=== PATIENT | male | born 1965 | race African-American/Black ===

== ENCOUNTER 2020-01-30 17:51 | Inpatient (IN) | payer MEDICAID ==
[~2020-01-30] VITALS: Ht 170.2 cm; Wt 100.2 kg
[2020-01-30 18:30] VITALS: BP 128/88
--- NOTE | 2020-01-30 18:55 | Emergency Room Report ---
History of Present Illness General Chief Complaint: General Complaint Source: Patient Present Illness HPI 54-year-old male presents with a chief complaint of weight loss, dry mouth increased urination x1 month, no aggravating relieving factors severity is moderate, constant patient has a family history of diabetes, patient denies any chest pain shortness of breath no nausea no vomiting no abdominal pain patient presents for evaluation Allergies: Coded Allergies: No Known Allergies (Unverified , 01/30/20) Patient History Past Medical History: see triage record Reviewed Nursing Documentation: PMH: Agreed; PSxH: Agreed Review of Systems All Other Systems: negative except mentioned in HPI Physical Exam Vital Signs Date Time Temp Pulse Resp B/P (MAP) Pulse Ox O2 Delivery O2 Flow Rate FiO2 01/30/20 18:04 97.5 87 18 128/88 (101) 97 Room Air Sp02 EP Interpretation: reviewed, normal General Appearance: well appearing, no apparent distress, alert Head: normocephalic, atraumatic Eyes: bilateral eye PERRL, bilateral eye EOMI ENT: uvula midline, moist mucus membranes Neck: supple, thyroid normal, supple/symm/no masses Respiratory: lungs clear, no respiratory distress, no retraction, no accessory muscle use Cardiovascular #1: normal peripheral pulses, regular rate, rhythm, no edema, no gallop, no murmur Gastrointestinal: non tender, soft, no guarding, no rebound Musculoskeletal: normal inspection Neurologic: alert, oriented x3 Psychiatric: mood/affect normal Skin: no rash, warm/dry Procedures Critical Care Time Critical Care Time Given the critical condition in which the patient arrived, the patient was immediately assessed by myself and the nurse, and cardiac monitoring initiated due to the potential for rapid decompensation of the patient's clinical condition. During the course of the patient's stay, I spent a considerable amount of time at the bedside performing serial re-evaluations of the patient's hemodynamic and clinical status because of the recognized potential threat to life or limb in this condition. I then had a chance to review not only all of the available current laboratory and radiographic studies obtained today, but I also reviewed old records available to me at the time. 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 Sequential vital signs were obtained. Critical Care time of 33 minutes was performed exclusive of billable procedures. Medical Decision Making Diagnostic Impression: Primary Impression: DKA (diabetic ketoacidoses) Qualified Codes: E13.10 - Other specified diabetes mellitus with ketoacidosis without coma ER Course 54-year-old male presents with diabetes, differential diagnosis includes type II -type I, DKA Patient blood gas shows acidosis, patient started on insulin drip, patient had lites repleted, fluids started, patient given potassium Patient admitted to Dr. Saleem Bourgeois for management of DKa Laboratory Tests Test 01/30/20 18:32 01/30/20 19:16 White Blood Count 13.2 K/UL (4.8-10.8) H Red Blood Count 5.01 M/UL (4.70-6.10) Hemoglobin 14.2 G/DL (14.2-18.0) Hematocrit 46.4 % (42.0-52.0) Mean Corpuscular Volume 93 FL (80-99) Mean Corpuscular Hemoglobin 28.3 PG (27.0-31.0) Mean Corpuscular Hemoglobin Concent 30.5 G/DL (32.0-36.0) L Red Cell Distribution Width 16.5 % (11.6-14.8) H Platelet Count 356 K/UL (150-450) Mean Platelet Volume 10.0 FL (6.5-10.1) Neutrophils (%) (Auto) 69.0 % (45.0-75.0) Lymphocytes (%) (Auto) 20.5 % (20.0-45.0) Monocytes (%) (Auto) 9.0 % (1.0-10.0) Eosinophils (%) (Auto) 0.4 % (0.0-3.0) Basophils (%) (Auto) 1.1 % (0.0-2.0) Urine Color Pale yellow Urine Appearance Clear Urine pH 5 (4.5-8.0) Urine Specific [place] 1.010 (1.005-1.035) Urine Protein Negative (NEGATIVE) Urine Glucose (UA) 4+ (NEGATIVE) H Urine Ketones 4+ (NEGATIVE) H Urine Blood Negative (NEGATIVE) Urine Nitrite Negative (NEGATIVE) Urine Bilirubin Negative (NEGATIVE) Urine Urobilinogen Normal MG/DL (0.0-1.0) Urine Leukocyte Esterase Negative (NEGATIVE) Venous Blood pH 7.230 Venous Blood Partial Pressure CO2 36.9 Venous Blood Partial Pressure O2 26.4 Venous Blood HCO3 15.1 Venous Blood Total Carbon Dioxide Pending Venous Blood Base Excess -11.6 Venous Blood Carboxyhemoglobin 0.3 % (0.5-1.5) L Methemoglobin 0.4 Sodium Level 133 MMOL/L (136-145) L Potassium Level 4.3 MMOL/L (3.5-5.1) Chloride Level 95 MMOL/L (98-107) L Carbon Dioxide Level 17 MMOL/L (21-32) L Anion Gap 21 mmol/L (5-15) H Blood Urea Nitrogen 12 mg/dL (7-18) Creatinine 1.5 MG/DL (0.55-1.30) H Estimated Glomerular Filtration Rate 59.5 mL/min (>60) Glucose Level 481 MG/DL (74-106) H Hemoglobin A1c 12.9 % (4.3-6.0) H Calcium Level 9.5 MG/DL (8.5-10.1) Total Bilirubin 0.4 MG/DL (0.2-1.0) Aspartate Amino Transferase (AST) 6 U/L (15-37) L Alanine Aminotransferase (ALT) 14 U/L (12-78) Alkaline Phosphatase 125 U/L (46-116) H Total Protein 8.3 G/DL (6.4-8.2) H Albumin 3.3 G/DL (3.4-5.0) L Globulin 5.0 g/dL Albumin/Globulin Ratio 0.7 (1.0-2.7) L Lipase 122 U/L (73-393) Arterial Blood pH 7.281 (7.350-7.450) Arterial Blood Partial Pressure CO2 25.4 mmHg (35.0-45.0) L Arterial Blood Partial Pressure O2 105.1 mmHg (75.0-100.0) H Arterial Blood HCO3 11.7 mmol/L (22.0-26.0) *L Arterial Blood Oxygen Saturation 97.4 % (95-100) Arterial Blood Base Excess -13.2 (-2-2) *L Porfirio Test Positive Rhythm Strip Diag. Results Rhythm Strip Time: 22:04 EP Interpretation: yes Rate: 92 Rhythm: NSR, no PVC's, no ectopy Last Vital Signs Date Time Temp Pulse Resp B/P (MAP) Pulse Ox O2 Delivery O2 Flow Rate FiO2 01/30/20 18:04 97.5 87 18 128/88 (101) 97 Room Air Disposition: ADMITTED INPATIENT Condition: Critical Scripts No Active Prescriptions or Reported Meds Referrals: NOT CHOSEN IPA/,REFERRING (PCP) Matt De Leon MD January 30, 2020 18:55
[2020-01-30 18:56] LABS: APPEARANCE,URINE CLEAR; BASOPHILS % (AUTO) 1.1 % (0.0-2.0); BILIRUBIN, URINE NEGATIVE (NEGATIVE); COLOR,URINE PALE YELLOW; EOSINOPHILS % (AUTO) 0.4 % (0.0-3.0); GLUCOSE, URINE (UA) 4+ (NEGATIVE); HEMATOCRIT 46.4 % (42.0-52.0); HEMOGLOBIN 14.2 G/DL (14.2-18.0); KETONES,URINE 4+ (NEGATIVE); LEUKOCYTE ESTERASE ,URINE NEGATIVE (NEGATIVE); LYMPHOCYTES % (AUTO) 20.5 % (20.0-45.0); MEAN CORPUSCULAR VOLUME 93 FL (80-99); NITRITE,URINE NEGATIVE (NEGATIVE); PH,URINE 5 (4.5-8.0); PLATELET COUNT 356 K/UL (150-450); PROTEIN,URINE NEGATIVE (NEGATIVE); RED BLOOD COUNT 5.01 M/UL (4.70-6.10); RED CELL DISTRIBUTION WIDTH 16.5 % (11.6-14.8); UROBILINOGEN,URINE NORMAL MG/DL (0.0-1.0); WHITE BLOOD COUNT 13.2 K/UL (4.8-10.8)
[2020-01-30 19:00] VITALS: BP 155/97
[2020-01-30 19:00] LABS: ANION GAP 21 mmol/L (5-15); BLOOD UREA NITROGEN 12 mg/dL (7-18); CALCIUM 9.5 MG/DL (8.5-10.1); CARBON DIOXIDE 17 MMOL/L (21-32); CHLORIDE 95 MMOL/L (98-107); CREATININE 1.5 MG/DL (0.55-1.30); POTASSIUM 4.3 MMOL/L (3.5-5.1); SODIUM 133 MMOL/L (136-145)
[2020-01-30 19:04] LABS: ALANINE AMINOTRANSFERASE 14 U/L (12-78); ALBUMIN 3.3 G/DL (3.4-5.0); ALBUMIN/GLOBULIN RATIO 0.7 (1.0-2.7); ALKALINE PHOSPHATASE 125 U/L (46-116); ASPARTATE AMINO TRANSFERASE 6 U/L (15-37); BILIRUBIN,TOTAL 0.4 MG/DL (0.2-1.0)
[2020-01-30 20:00] VITALS: BP 150/90
[2020-01-30] MEDS ORDERED: Insulin Rate Change 1 Each MISC PRN (20:15)
[2020-01-30] MEDS ORDERED: Insulin Human Regular 100units/ml 3ml IV ONE (20:15)
[2020-01-30] MEDS ORDERED: Insulin Human Regular 100units/ml 3ml IV PRN ×2 (20:15)
[2020-01-30] MEDS ORDERED: Insulin Reg 100 units Premix 100 ML IV SCH (20:15)
[2020-01-30 21:00] VITALS: BP 178/123
[2020-01-30 22:00] VITALS: BP 171/94
[2020-01-30 23:00] VITALS: BP 141/107
[2020-01-30 23:04] LABS: ANION GAP 18 mmol/L (5-15); BLOOD UREA NITROGEN 9 mg/dL (7-18); CALCIUM 9.2 MG/DL (8.5-10.1); CARBON DIOXIDE 18 MMOL/L (21-32); CHLORIDE 101 MMOL/L (98-107); CREATININE 1.4 MG/DL (0.55-1.30); POTASSIUM 4.4 MMOL/L (3.5-5.1); SODIUM 137 MMOL/L (136-145)
[2020-01-31] VITALS (7 sets, daily range): BP systolic 119–142; BP diastolic 74–96
[2020-01-31 01:01] LABS: ANION GAP 15 mmol/L (5-15); BLOOD UREA NITROGEN 9 mg/dL (7-18); CALCIUM 8.8 MG/DL (8.5-10.1); CARBON DIOXIDE 21 MMOL/L (21-32); CHLORIDE 104 MMOL/L (98-107); CREATININE 1.2 MG/DL (0.55-1.30); POTASSIUM 3.6 MMOL/L (3.5-5.1); SODIUM 140 MMOL/L (136-145)
[2020-01-31] MEDS: NovoLOG Insulin Flexpen SUBQ SCH ×6 (06:30→21:49)
[2020-01-31] MEDS: metFORMIN 500mg tab ORAL SCH ×2 (06:30→17:07)
[2020-01-31] MEDS ORDERED: Levemir Flexpen SUBQ SCH (10:00)
--- NOTE | 2020-01-31 16:14 | Consultation ---
DATE OF CONSULTATION: 01/31/2020 ENDOCRINOLOGY CONSULTATION CONSULTING PHYSICIAN: Dedrick Jo MD. REFERRING PHYSICIAN: Saleem Bourgeois DO. REASON FOR CONSULTATION: Diabetes management. HISTORY OF PRESENT ILLNESS: Patient is a 54-year-old male, obese who presented to the hospital with a month history of polyuria, polydipsia, and weight loss. He had no prior history of diabetes. On presentation, he was noted to have a glucose of 481, sodium 132, potassium 4.3, chloride 95, bicarb of 17, and anion gap of 21. He was started on IV fluid and insulin. Anion gap closed. Glucose came down to 132. Hemoglobin A1c is over 16. Lipase is normal. Endocrinology was consulted for management of new onset diabetes and mild DKA. PAST MEDICAL HISTORY: None. FAMILY HISTORY: Noncontributory. SOCIAL HISTORY: No smoking, alcohol, or drug use. PAST SURGICAL HISTORY: None. MEDICATIONS AN OUTPATIENT: None. ALLERGIES TO MEDICATIONS: None. LABORATORY DATA: Reviewed in history of present illness. REVIEW OF SYSTEMS: As per HPI. PHYSICAL EXAMINATION: VITAL SIGNS: Blood pressure 139/87, heart rate of 79, temperature 97.5. HEENT: Pupils are reactive to light. Sclerae anicteric. NECK: No JVD. HEART: Regular. LUNGS: Clear. ABDOMEN: Positive bowel sounds. EXTREMITIES: No clubbing. No cyanosis. DIAGNOSES: 1. New onset diabetes, type 2 versus type 1, most likely type 2 due to body habitus. 2. Mild DKA, resolved. PLAN: 1. Continue with metformin for now. 2. Add Levemir 24 units daily. 3. Add NovoLog 8 units before each meal. 4. Check C-peptide and GLADIS antibodies in order to rule out type 1 diabetes. 5. Hypoglycemia protocol is in order. 6. Further adjustment according to blood glucose values. Thank you, Dr. Bourgeois, for the courtesy of this consultation. Dedrick Jo M.D. DR: JUANA JOB#: [id number] CC:
--- NOTE | 2020-01-31 18:00 | History and Physical Report ---
DATE OF ADMISSION: 01/30/2020 DATE AND TIME SEEN: 01/31/2020 at 9 a.m. CONSULTANTS: 1. Iban Land MD. 2. Dedrick Jo MD. CHIEF COMPLAINT: DKA. BRIEF HISTORY: This is a 54-year-old male, who presents to [facility] last night with history of increased weakness, lethargy, was found to have diabetic ketoacidosis, admitted to telemetry. Currently calm, sleeping in bed, not talking much. REVIEW OF SYSTEMS: Unavailable. PAST MEDICAL HISTORY: Diabetes. PAST SURGICAL HISTORY: Unknown. MEDICATIONS: Insulin, metformin, IV fluids, potassium. ALLERGIES: Denies. SOCIAL HISTORY: Unable to obtain secondary to patient's condition. PHYSICAL EXAMINATION: GENERAL: Lethargic in bed, refusing to answer questions. VITAL SIGNS: Temperature 97 degrees, pulse 89, respirations 19, blood pressure 136/87. GENERAL: Lethargic, sleepy. HEENT: Normocephalic, atraumatic. NECK: Trachea midline. CARDIOVASCULAR: No peripheral edema. PULMONARY: Comfortable on room air. ABDOMEN: No apparent wounds. EXTREMITIES: Show no cyanosis or clubbing. LABORATORY AND DIAGNOSTIC DATA: Labs at this time show white count 13. Otherwise CBC is normal. Currently glucose 132, initially 481. Albumin 3.3. Urinalysis, 4+ glucose, 4+ ketone. ASSESSMENT: 1. Mild DKA. 2. Leukocytosis. 3. Malnutrition. PLAN: 1. IV fluids. 2. Blood sugar control. 3. Resume home medications. 4. Dietary followup. 5. PT. 6. CBC, BMP in the morning. 7. We will continue to follow patient. Saleem Bourgeois D.O. DR: DANIELLE JOB#: [id number] CC:
--- NOTE | 2020-01-31 19:59 | Consultation ---
DATE OF CONSULTATION: 01/31/2020 PULMONARY CONSULTATION/ICU CONSULTATION HISTORY OF PRESENT ILLNESS: This is a 54-year-old male with history of weight loss, dry mouth, and polydipsia for the last one month. He is not a known diabetic but yesterday was found to have significant hyperglycemia. He reports a family history of diabetes. He has been in the hospital with mild diabetic ketoacidosis. PAST MEDICAL HISTORY: The patient denies. PAST SURGICAL HISTORY: None. ALLERGIES: None reported. HOME MEDICATIONS: None. REVIEW OF SYSTEMS: Denies any headaches, hematemesis, melena, hematochezia, night sweats, or weight loss. PHYSICAL EXAMINATION: GENERAL: Reveals a obese black male. VITAL SIGNS: Blood pressure is 130/60, heart rate 84, respiratory rate 20, afebrile, O2 saturation 99% on room air. HEENT: Unremarkable. CHEST: Clear breath sounds. ABDOMEN: Soft. EXTREMITIES: There is no edema. NEUROLOGIC: Nonfocal. LABORATORY DATA: Lab testing shows white count [id number], otherwise normal CBC. BMP notable for glucose of 236 with initial bicarb of 18 and anion gap of 18. This morning, bicarb was 21 and anion gap is normal, sodium is 132, he has received insulin as well as metformin. IMPRESSION: 1. Mild diabetic ketoacidosis 2. New onset diabetes. DISCUSSION: Admitted to the hospital, insulin therapy per Endocrinology. We will start Glucophage, IV fluids, insulin sliding scale. We will follow carefully. Iban Land M.D. DR: Alesia JOB#: [id number] CC:
[2020-02-01] VITALS: BP 129/76
[2020-02-01 04:00] VITALS: BP 130/78
[2020-02-01] MEDS: metFORMIN 500mg tab ORAL SCH ×2 (06:37→17:22)
[2020-02-01] MEDS: NovoLOG Insulin Flexpen SUBQ SCH ×6 (06:38→17:23)
--- NOTE | 2020-02-01 07:13 | General Progress Note ---
Assessment/Plan Problem List: (1) Diabetes mellitus, new onset (2) DKA (diabetic ketoacidoses) Assessment/Plan: increase Levemir to 36 units daily increase Novolog to 12 units ac tid continue Novolog sliding scale continue Metformin he needs to stay on insulin regimen after discharge Subjective Allergies: Coded Allergies: No Known Allergies (Unverified , 01/30/20) All Systems: reviewed and negative except above Subjective events noted glucose values are still elevated Item Value Date Time Bedside Blood Glucose 310 mg/dl H 02/01/20 0638 Bedside Blood Glucose 233 mg/dl H 01/31/20 2149 Bedside Blood Glucose 230 mg/dl H 01/31/20 1707 Bedside Blood Glucose 262 mg/dl H 01/31/20 1301 Bedside Blood Glucose 280 mg/dl H 01/31/20 1005 Bedside Blood Glucose 280 mg/dl H 01/31/20 0630 Objective Last 24 Hour Vital Signs Date Time Temp Pulse Resp B/P (MAP) Pulse Ox O2 Delivery O2 Flow Rate FiO2 02/01/20 04:00 98.3 83 18 130/78 (95) 97 02/01/20 04:00 100 02/01/20 00:00 98.2 86 17 129/76 (93) 97 02/01/20 00:00 87 01/31/20 21:00 Room Air 01/31/20 20:00 91 01/31/20 20:00 98.1 85 18 129/74 (92) 98 01/31/20 16:00 98.2 87 19 119/76 (90) 99 01/31/20 16:00 84 01/31/20 12:00 98.1 85 20 135/77 (96) 98 01/31/20 12:00 79 01/31/20 09:00 Room Air 01/31/20 08:00 85 01/31/20 08:00 97.7 89 19 136/87 (103) 100 Intake and Output 01/31/20 02/01/20 19:00 07:00 Intake Total 910 ml 1560 ml Output Total 1150 ml 3100 ml Balance -240 ml -1540 ml Intake Oral 810 ml 560 ml IV Total 100 ml 1000 ml Output Urine Total 1150 ml 3100 ml # Voids 6 Laboratory Tests 02/01/20 06:06: White Blood Count [Pending], Red Blood Count [Pending], Hemoglobin [Pending], Hematocrit [Pending], Mean Corpuscular Volume [Pending], Mean Corpuscular Hemoglobin [Pending], Mean Corpuscular Hemoglobin Concent [Pending], Red Cell Distribution Width [Pending], Platelet Count [Pending], Mean Platelet Volume [ Pending], Neutrophils (%) (Auto) [Pending], Lymphocytes (%) (Auto) [Pending], Monocytes (%) (Auto) [Pending], Eosinophils (%) (Auto) [Pending], Basophils (%) (Auto) [Pending], Sodium Level [Pending], Potassium Level [Pending], Chloride Level [Pending], Carbon Dioxide Level [Pending], Blood Urea Nitrogen [Pending], Creatinine [Pending], Estimat Glomerular Filtration Rate [Pending], Glucose Level [Pending], Calcium Level [Pending] Height (Feet): 5 Height (Inches): 7.00 Weight (Pounds): 221 General Appearance: no apparent distress Neck: normal alignment Cardiovascular: normal rate Respiratory/Chest: lungs clear Abdomen: normal bowel sounds Objective Current Medications Medications (Trade) Dose Ordered Sig/Aroldo Route PRN Reason Start Time Stop Time Status Last Admin Dose Admin Dextrose (Dextrose 50%) 25 ml Q30M PRN IV Hypoglycemia 01/31/20 08:15 04/30/20 08:14 Dextrose (Dextrose 50%) 50 ml Q30M PRN IV Hypoglycemia 01/31/20 08:15 04/30/20 08:14 Insulin Aspart (NovoLOG) BEFORE MEALS AND HS SUBQ 01/31/20 06:30 04/30/20 06:29 02/01/20 06:38 Insulin Aspart (NovoLOG) 8 units NOVOTIAC SUBQ 01/31/20 11:50 04/30/20 11:49 02/01/20 06:38 Insulin Detemir (Levemir) 24 units DAILY SUBQ 01/31/20 10:00 04/30/20 09:59 01/31/20 10:05 Metformin HCl (Glucophage) 1,000 mg BIAC ORAL 01/31/20 06:30 03/01/20 06:29 02/01/20 06:37 Sodium Chloride 1,000 ml @ 100 mls/hr Q10H IV 01/31/20 04:00 03/01/20 03:59 02/01/20 00:00 Dedrick Jo MD February 01, 2020 07:13
[2020-02-01 07:23] LABS: EOSINOPHILS % (AUTO) 0.7 % (0.0-3.0); HEMATOCRIT 38.8 % (42.0-52.0); HEMOGLOBIN 13.3 G/DL (14.2-18.0); LYMPHOCYTES % (AUTO) 24.9 % (20.0-45.0); MEAN CORPUSCULAR VOLUME 85 FL (80-99); MONOCYTES % (AUTO) 9.4 % (1.0-10.0); NEUTROPHILS % (AUTO) 63.9 % (45.0-75.0); PLATELET COUNT 306 K/UL (150-450); RED BLOOD COUNT 4.57 M/UL (4.70-6.10); RED CELL DISTRIBUTION WIDTH 14.7 % (11.6-14.8); WHITE BLOOD COUNT 10.8 K/UL (4.8-10.8)
[2020-02-01 07:36] LABS: ANION GAP 13 mmol/L (5-15); BLOOD UREA NITROGEN 5 mg/dL (7-18); CALCIUM 9.1 MG/DL (8.5-10.1); CARBON DIOXIDE 21 MMOL/L (21-32); CHLORIDE 102 MMOL/L (98-107); CREATININE 1.2 MG/DL (0.55-1.30); POTASSIUM 3.6 MMOL/L (3.5-5.1); SODIUM 136 MMOL/L (136-145)
[2020-02-01 08:00] VITALS: BP 124/75
[2020-02-01] MEDS ORDERED: Levemir Flexpen SUBQ SCH (09:00)
--- NOTE | 2020-02-01 10:16 | Pulmonology Progress Note ---
Subjective Interval Events: Doing better Constitutional: Reports: no symptoms HEENT: Repors: no symptoms Respiratory: Reports: no symptoms Cardiovascular: Reports: no symptoms Gastrointestinal/Abdominal: Reports: no symptoms Allergies: Coded Allergies: No Known Allergies (Unverified , 01/30/20) All Systems: reviewed and negative except above Objective Last 24 Hour Vital Signs Date Time Temp Pulse Resp B/P (MAP) Pulse Ox O2 Delivery O2 Flow Rate FiO2 02/01/20 09:00 Room Air 02/01/20 08:00 88 02/01/20 08:00 97.3 89 18 124/75 (91) 97 02/01/20 04:00 98.3 83 18 130/78 (95) 97 02/01/20 04:00 100 02/01/20 00:00 98.2 86 17 129/76 (93) 97 02/01/20 00:00 87 01/31/20 21:00 Room Air 01/31/20 20:00 91 01/31/20 20:00 98.1 85 18 129/74 (92) 98 01/31/20 16:00 98.2 87 19 119/76 (90) 99 01/31/20 16:00 84 01/31/20 12:00 98.1 85 20 135/77 (96) 98 01/31/20 12:00 79 Intake and Output 01/31/20 02/01/20 19:00 07:00 Intake Total 910 ml 1560 ml Output Total 1150 ml 3100 ml Balance -240 ml -1540 ml Intake Oral 810 ml 560 ml IV Total 100 ml 1000 ml Output Urine Total 1150 ml 3100 ml # Voids 6 General Appearance: no acute distress HEENT: normocephalic Respiratory/Chest: chest wall non-tender, lungs clear Cardiovascular: normal peripheral pulses Abdomen: normal bowel sounds Laboratory Tests 02/01/20 06:06: White Blood Count 10.8, Red Blood Count 4.57L, Hemoglobin 13.3L, Hematocrit 38.8L, Mean Corpuscular Volume 85#, Mean Corpuscular Hemoglobin 29.2, Mean Corpuscular Hemoglobin Concent 34.4, Red Cell Distribution Width 14.7, Platelet Count 306, Mean Platelet Volume 7.3, Neutrophils (%) (Auto) 63.9, Lymphocytes (% ) (Auto) 24.9, Monocytes (%) (Auto) 9.4, Eosinophils (%) (Auto) 0.7, Basophils ( %) (Auto) 1.0, Sodium Level 136, Potassium Level 3.6, Chloride Level 102, Carbon Dioxide Level 21, Anion Gap 13, Blood Urea Nitrogen 5L, Creatinine 1.2, Estimat Glomerular Filtration Rate > 60, Glucose Level 298#H, Calcium Level 9.1 Current Medications Medications (Trade) Dose Ordered Sig/Aroldo Route PRN Reason Start Time Stop Time Status Last Admin Dose Admin Dextrose (Dextrose 50%) 25 ml Q30M PRN IV Hypoglycemia 01/31/20 08:15 04/30/20 08:14 Dextrose (Dextrose 50%) 50 ml Q30M PRN IV Hypoglycemia 01/31/20 08:15 04/30/20 08:14 Insulin Aspart (NovoLOG) BEFORE MEALS AND HS SUBQ 02/01/20 11:30 05/01/20 11:29 Insulin Aspart (NovoLOG) 12 units NOVOTIAC SUBQ 02/01/20 11:50 04/30/20 11:49 Insulin Detemir (Levemir) 36 units DAILY SUBQ 02/01/20 09:00 04/30/20 09:59 02/01/20 09:54 Metformin HCl (Glucophage) 1,000 mg BIAC ORAL 01/31/20 06:30 03/01/20 06:29 02/01/20 06:37 Sodium Chloride 1,000 ml @ 100 mls/hr Q10H IV 01/31/20 04:00 03/01/20 03:59 02/01/20 09:54 Assessment/Plan Assessment/Plan IMPRESSION: 1. Mild diabetic ketoacidosis; resolved 2. New onset diabetes. DISCUSSION: Insulin therapy per Endocrinology. Continue Glucophage, OK to dc Josselyn Beaver Omar Syed MD February 01, 2020 10:16
[2020-02-01 12:00] VITALS: BP 122/71
--- NOTE | 2020-02-01 13:16 | General Progress Note ---
Assessment/Plan Problem List: (1) Diabetes ICD Codes: E11.9 - Type 2 diabetes mellitus without complications SNOMED: 68302530 (2) Malnutrition ICD Codes: E46 - Unspecified protein-calorie malnutrition SNOMED: 63627356 (3) DKA (diabetic ketoacidoses) ICD Codes: E11.10 - Type 2 diabetes mellitus with ketoacidosis without coma SNOMED: 713574137, 42604391 Qualifiers: Qualified Codes: E13.10 - Other specified diabetes mellitus with ketoacidosis without coma Status: stable, progressing Assessment/Plan: bs control dc if clear by endo Subjective Constitutional: Reports: weakness Allergies: Coded Allergies: No Known Allergies (Unverified , 01/30/20) All Systems: reviewed and negative except above Subjective sittin on bed calm Objective Last 24 Hour Vital Signs Date Time Temp Pulse Resp B/P (MAP) Pulse Ox O2 Delivery O2 Flow Rate FiO2 02/01/20 09:00 Room Air 02/01/20 08:00 88 02/01/20 08:00 97.3 89 18 124/75 (91) 97 02/01/20 04:00 98.3 83 18 130/78 (95) 97 02/01/20 04:00 100 02/01/20 00:00 98.2 86 17 129/76 (93) 97 02/01/20 00:00 87 01/31/20 21:00 Room Air 01/31/20 20:00 91 01/31/20 20:00 98.1 85 18 129/74 (92) 98 01/31/20 16:00 98.2 87 19 119/76 (90) 99 01/31/20 16:00 84 Intake and Output 01/31/20 02/01/20 19:00 07:00 Intake Total 910 ml 1560 ml Output Total 1150 ml 3100 ml Balance -240 ml -1540 ml Intake Oral 810 ml 560 ml IV Total 100 ml 1000 ml Output Urine Total 1150 ml 3100 ml # Voids 6 Laboratory Tests 02/01/20 06:06: White Blood Count 10.8, Red Blood Count 4.57L, Hemoglobin 13.3L, Hematocrit 38.8L, Mean Corpuscular Volume 85#, Mean Corpuscular Hemoglobin 29.2, Mean Corpuscular Hemoglobin Concent 34.4, Red Cell Distribution Width 14.7, Platelet Count 306, Mean Platelet Volume 7.3, Neutrophils (%) (Auto) 63.9, Lymphocytes (% ) (Auto) 24.9, Monocytes (%) (Auto) 9.4, Eosinophils (%) (Auto) 0.7, Basophils ( %) (Auto) 1.0, Sodium Level 136, Potassium Level 3.6, Chloride Level 102, Carbon Dioxide Level 21, Anion Gap 13, Blood Urea Nitrogen 5L, Creatinine 1.2, Estimat Glomerular Filtration Rate > 60, Glucose Level 298#H, Calcium Level 9.1 Height (Feet): 5 Height (Inches): 7.00 Weight (Pounds): 221 General Appearance: alert EENT: normal ENT inspection Neck: normal alignment Cardiovascular: normal rate, regular rhythm Respiratory/Chest: no respiratory distress, no accessory muscle use Abdomen: non tender, soft Extremities: normal inspection Edema: no edema noted Arm (L), no edema noted Arm (R), no edema noted Leg (L), no edema noted Leg (R), no edema noted Pedal (L), no edema noted Pedal (R), no edema noted Generalized Neurologic: responsive Skin: normal pigmentation Saleem Bourgeois DO February 01, 2020 13:16
[2020-02-01 16:00] VITALS: BP 121/83
--- NOTE | 2020-02-02 09:44 | Discharge Summary ---
Discharge Summary Discharge Summary _ DATE OF ADMISSION: 01/30/2020 DATE OF DISCHARGE: 02/01/2020 DISCHARGED BY: Dr Bourgeois REASON FOR ADMISSION: 54 years old male presented with chief complaint of weight loss, dry mouth and increased urination for 1 month. He reported family history of diabetes. No chest pain or shortness of breath. No nausea,vomiting or abdominal pain. Upon evaluation vital signs were stable. Laboratory work-up revealed mild leukocytosis WBC 13.2 ,stable hemoglobin, hematocrit and platelet count. Urinalysis revealed +4 glucose , + 4 ketones, no evidence of urinary tract infection. Chemistry revealed sodium 133, potassium 4.3, anion gap 21. BUN 12, creatinine 1.5. Glucose 481. Hemoglobin A1c 12.9. Stable LFT . ABG revealed evidence of metabolic acidosis with bicarb 11.7, pH 7.28 . In emergency department patient received IV insulin , started on generous IV hydration, repeated BMP showed stable anion gap 15. Patient admitted with diabetic ketoacidosis. CONSULTANTS: pulmonary Dr Land resource protection specialist Dr. Jo [facility] COURSE: Patient started on generous IV hydration.. As per resource protection specialist recommendation, blood sugar was managed with long- acting insulin , hort acting pre-meal insulin. Sliding scale of insulin was on board as needed. Hypoglycemia protocol was in order. C-peptide 1.3. Renal parameters and electrolytes were closely monitored. Creatinine down to 1.2 Diabetic teaching provided. Blood sugar improved. Patient started on metformin, Patient was encouraged compliance with medication and diabetic diet. Per resource protection specialist, patient will need to stay on insulin regimen after discharge. Prescription provided. Mild initial leukocytosis resolved, likely was due to DKA. Patient clinically stabilized and was ready for discharge home. FINAL DIAGNOSES: Diabetic ketoacidosis, mild -resolved New onset of diabetes DISCHARGE MEDICATIONS: Prescription provided to patient. DISCHARGE INSTRUCTIONS: Patient was discharged home. Follow-up with primary care provider in 1 week. I have been assigned to dictate discharge summary for this account. I was not involved in the patient's management. Citlalli Dunlap NP February 02, 2020 09:44
== END 2020-02-01 19:03 | disposition home or self-care (01) | DRG 420 ==
LOC: EMR 18:39 → ICU 21:01 → EDBEDREQ 22:25 → 2E 01-31 01:52
DX: E11.10 Type 2 diabetes mellitus with ketoacidosis without coma (principal); E46 Unspecified protein-calorie malnutrition; Z68.34 Body mass index [BMI] 34.0-34.9, adult; Z79.4 Long term (current) use of insulin
CPT/HCPCS: 36415; 36600; 80048; 80053; 81003; 82803; 82962; 83036; 83690; 84681; 85025; 87081; 93005; 96361; 96365; 96366; 96368; 97803; 99291; J1815; J7030; J8499; S5561